=== PATIENT | female | born 1960 ===

== ENCOUNTER 2024-10-11 12:15 | Inpatient (IN) | payer OTHER ==
[~2024-10-11] VITALS: Ht 152.4 cm; Wt 75.7 kg
[2024-10-11] MEDS ORDERED: HUMALOG100 UNIT/2 (14:57)
[2024-10-11] MEDS ORDERED: LANTUS SOL100 UNIT/1 (14:57)
[2024-10-11] MEDS ORDERED: CARVEDILOL25 MG (14:58)
[2024-10-11] MEDS ORDERED: COZAAR50 MG PO (14:58)
[2024-10-11] MEDS ORDERED: LIPITOR40 MG PO (14:58)
[2024-10-18] MEDS ORDERED: BUPIVACAINE HCL 30 ML VIAL IJ ONE (08:30)
[2024-10-18] MEDS ORDERED: CEFTRIAXONE SODIUM 2,000 MG VIAL IV ONE (08:30)
[2024-10-18] MEDS ORDERED: LIDOCAINE HCL 1%/EPINEPHRINE 20ML VIAL IJ ONE (08:30)
[2024-10-18] MEDS ORDERED: INSULIN REGULAR, HUMAN 1,000 UNIT/10 ML UNITS IV ONE (08:30)
[2024-10-18] MEDS ORDERED: METRONIDAZOLE/SODIUM CHLORIDE 500 MG/100 ML PIGGYBACK IV ONE (08:30)
[2024-10-18] MEDS ORDERED: LOSARTAN POTASS25 MG (10:00)
[2024-10-18] MEDS ORDERED: LEVOTHYROXINE25 MC1 (10:00)
[2024-10-18] MEDS ORDERED: CALCITRIOL0.5 MCG (10:00)
[2024-10-18] MEDS ORDERED: CARVEDILOL25 M1 (10:00)
[2024-10-18] MEDS ORDERED: ROSUVASTATIN CA40 MG (10:00)
[2024-10-18] MEDS ORDERED: OxyCODONE HCL 5 MG TABLET (ROXICODONE) PO PRN (10:15)
[2024-10-18] MEDS ORDERED: MORPHINE SULFATE 4 MG/ML CARTRIDGE IV PRN (10:15)
[2024-10-18] MEDS ORDERED: RINGERS SOLUTION,LACTATED 1,000 ML IV SCH (10:15)
[2024-10-18] MEDS ORDERED: ONDANSETRON HCL 2 MG/ML VIAL IV PRN (10:15)
[2024-10-18] MEDS ORDERED: MORPHINE SULFATE 4 MG/ML VIAL IV ONE ×2 (10:55→12:25)
[2024-10-18] MEDS ORDERED: ONDANSETRON HCL 2 MG/ML VIAL IV ONE (11:00)
[2024-10-18 11:30] LABS: BASO % 0.2 % (0.1-1.2); EOS # 0.07 (0.04-0.54); EOS % 0.3 % (0.7-7.0); LYMPH # 0.85 (1.18-3.74); LYMPH % 3.9 % (19.3-53.1); MEAN PLATELET VOLUME 9.80 fl (9.4-12.4); MONO # 0.55 (0.24-0.82); MONO % 2.5 % (4.7-12.5); NEUT # 20.10 (1.56-6.13); NEUT % 92.6 % (34.0-71.1); RED CELL DISTRIBUTION WIDTH 13.2 % (11.6-14.4)
[2024-10-18] MEDS ORDERED: HYOSCYAMINE SULFATE 0.125 MG TAB.SUBL SL SCH (13:00)
[2024-10-18] MEDS ORDERED: SIMETHICONE 125 MG CAPSULE PO SCH (13:00)
[2024-10-18] MEDS ORDERED: INSULIN LISPRO 1,000 UNIT/10 ML UNITS SUBCUTANEO PRN ×2 (13:15→13:30)
[2024-10-18] MEDS ORDERED: DEXTROSE 50 % IN WATER 0.5 G/ML VIAL IV PRN (13:15)
[2024-10-18 13:30] VITALS: BP 145/79; O2SAT 95
[2024-10-18] MEDS ORDERED: hydrALAZINE HCL 20 MG VIAL IV PRN (13:30)
[2024-10-18] MEDS ORDERED: DEXTROSE 50 % IN WATER 0.5 G/ML DISP.SYRIN IV PRN (13:30)
[2024-10-18] MEDS ORDERED: ACETAMINOPHEN 500 MG GEL..CAP PO SCH (14:00)
[2024-10-18 16:01] VITALS: BP 117/59; O2SAT 96
[2024-10-18 16:02] VITALS: BP 148/65; O2SAT 97
[2024-10-18] MEDS ORDERED: POLYETHYLENE GLYCOL 3350 17 GM BLIST.PACK PO SCH (17:00)
[2024-10-18] MEDS ORDERED: GABAPENTIN 300 MG CAPSULE PO SCH (17:00)
[2024-10-18] MEDS ORDERED: CELECOXIB 200 MG CAPSULE PO SCH (17:00)
[2024-10-18] MEDS ORDERED: METOCLOPRAMIDE HCL 5 MG/ML VIAL IV SCH (17:00)
[2024-10-18] MEDS ORDERED: FAMOTIDINE/PF 20 MG/2 ML VIAL IV PUSH SCH (21:00)
[2024-10-19] VITALS: BP 130/75; O2SAT 90
[2024-10-19] MEDS ORDERED: LEVOTHYROXINE SODIUM 25 MCG TABLET PO SCH (06:00)
[2024-10-19 06:30] LABS: BASO % 0.1 % (0.1-1.2); EOS # 0.12 (0.04-0.54); EOS % 0.9 % (0.7-7.0); LYMPH # 1.57 (1.18-3.74); LYMPH % 11.7 % (19.3-53.1); MEAN PLATELET VOLUME 10.00 fl (9.4-12.4); MONO # 0.93 (0.24-0.82); MONO % 6.9 % (4.7-12.5); NEUT # 10.76 (1.56-6.13); NEUT % 80.0 % (34.0-71.1); RED CELL DISTRIBUTION WIDTH 13.1 % (11.6-14.4)
[2024-10-19 07:20] LABS: BUN CREA RATIO 13.0 (7.0-25.0); CREATININE SERUM 3.69 mg/dL (0.55-1.02); GFR 12.41; GLUCOSE FASTING 152.0 mg/dL (65-100); OSMOLALITY SERUM 308.0 MOSM/KG (275-295)
[2024-10-19 08:00] VITALS: BP 120/58; O2SAT 95
[2024-10-19] MEDS ORDERED: LACTULOSE 20 G/30 ML BLIST.PACK PO SCH (09:00)
[2024-10-19] MEDS ORDERED: LOSARTAN POTASSIUM 50 MG TABLET PO SCH (09:00)
[2024-10-19] MEDS ORDERED: CARVEDILOL 25 MG TABLET PO SCH (09:00)
[2024-10-19] MEDS ORDERED: INSULIN LISPRO 1,000 UNIT/10 ML UNITS SUBCUTANEO SCH (13:03)
[2024-10-19] MEDS ORDERED: ENOXAPARIN SODIUM 40 MG/0.4 ML SYRINGE SUBCUTANEO SCH (17:00)
[2024-10-19] MEDS ORDERED: ENOXAPARIN SODIUM 30 MG/0.3 ML SYRINGE SUBCUTANEO SCH (17:00)
[2024-10-19] MEDS ORDERED: ATORVASTATIN CALCIUM 40 MG TABLET PO SCH (17:00)
[2024-10-20 00:05] VITALS: BP 131/73; O2SAT 94
[2024-10-20 06:46] LABS: BASO % 0.1 % (0.1-1.2); EOS # 0.23 (0.04-0.54); EOS % 1.5 % (0.7-7.0); LYMPH # 1.14 (1.18-3.74); LYMPH % 7.4 % (19.3-53.1); MEAN PLATELET VOLUME 10.40 fl (9.4-12.4); MONO # 0.74 (0.24-0.82); MONO % 4.8 % (4.7-12.5); NEUT # 13.18 (1.56-6.13); NEUT % 85.7 % (34.0-71.1); RED CELL DISTRIBUTION WIDTH 13.4 % (11.6-14.4)
[2024-10-20 07:29] LABS: BUN CREA RATIO 12.0 (7.0-25.0); CREATININE SERUM 3.38 mg/dL (0.55-1.02); GFR 13.73
[2024-10-20 07:59] LABS: GLUCOSE FASTING 212.0 mg/dL (65-100); OSMOLALITY SERUM 307.0 MOSM/KG (275-295)
[2024-10-20] MEDS ORDERED: INSULIN LISPRO 1,000 UNIT/10 ML UNITS SUBCUTANEO SCH ×2 (08:00→12:00)
[2024-10-20 08:08] VITALS: BP 157/82; O2SAT 95
[2024-10-20] MEDS ORDERED: ENOXAPARIN SODIUM 40 MG/0.4 ML SYRINGE SUBCUTANEO SCH (09:00)
[2024-10-20] MEDS ORDERED: INSULIN GLARGINE,HUM.REC.ANLOG 1,000 UNITS/10 ML UNITS SUBCUTANEO SCH (09:00)
[2024-10-20] MEDS ORDERED: ENOXAPARIN SODIUM 30 MG/0.3 ML SYRINGE SUBCUTANEO SCH (09:00)
[2024-10-20] MEDS ORDERED: DEXTROSE 5 % IN WATER 1,000 ML IV SCH (09:45)
[2024-10-20] MEDS ORDERED: MAGNESIUM SULFATE IN WATER 50 ML IV NR (10:00)
[2024-10-20 15:30] VITALS: BP 108/67; O2SAT 96
== END 2024-10-20 18:00 | disposition home or self-care (01) | DRG 330 ==
LOC: O/R 10-18 09:53 → SURG 10-18 09:53 → SURH 10-18 12:15 → SURG 10-18 12:44 → SURH 10-18 14:30 → SURG 10-20 18:00
PROVIDERS: Internal Medicine Geriatric Medicine; ADMIT Colon & Rectal Surgery; ATTEND Colon & Rectal Surgery
PROC: 0DBP4ZZ Excision of Rectum, Percutaneous Endoscopic Approach (ICD-10-PCS; 2024-10-18)
PROC: 07BC4ZZ Excision of Pelvis Lymphatic, Percutaneous Endoscopic Approach (ICD-10-PCS; 2024-10-18)
PROC: 0DTN4ZZ Resection of Sigmoid Colon, Percutaneous Endoscopic Approach (ICD-10-PCS; principal; 2024-10-18 14:30)
DX: C19 Malignant neoplasm of rectosigmoid junction (principal); K92.1 Melena; N18.4 Chronic kidney disease, stage 4 (severe); E11.9 Type 2 diabetes mellitus without complications; Z79.4 Long term (current) use of insulin

== ENCOUNTER 2024-10-24 20:32 | Inpatient (IN) | payer OTHER ==
[~2024-10-24] VITALS: Ht 152.4 cm; Wt 75.7 kg
[~2024-10-24 20:32] MED LIST: CALCITRIOL0.5 MCG; CARVEDILOL25 M1; CARVEDILOL25 MG; COZAAR50 MG PO; HUMALOG100 UNIT/2; LANTUS SOL100 UNIT/1; LEVOTHYROXINE25 MC1; LIPITOR40 MG PO; LOSARTAN POTASS25 MG; ROSUVASTATIN CA40 MG
[2024-10-24] MEDS ORDERED: PANTOPRAZOLE SODIUM 40 MG in 0.9 % SODIUM CHLORIDE 8 ML IV PUSH STA (20:58)
[2024-10-24] MEDS ORDERED: ONDANSETRON HCL 2 MG/ML VIAL IV ONE (21:00)
[2024-10-24] MEDS ORDERED: MORPHINE SULFATE 4 MG/ML VIAL IV ONE (21:00)
[2024-10-24] MEDS ORDERED: 0.9 % SODIUM CHLORIDE 1,000 ML IV SCH ×2 (21:00→21:30)
[2024-10-24] MEDS ORDERED: TRAMADOL HCL 50 MG TABLET PO ONE (21:30)
[2024-10-24 22:12] LABS: BASO % 0.2 % (0.1-1.2); EOS # 0.43 (0.04-0.54); EOS % 2.4 % (0.7-7.0); LYMPH # 1.28 (1.18-3.74); LYMPH % 7.2 % (19.3-53.1); MEAN PLATELET VOLUME 9.60 fl (9.4-12.4); MONO # 0.93 (0.24-0.82); MONO % 5.2 % (4.7-12.5); NEUT # 15.07 (1.56-6.13); NEUT % 84.6 % (34.0-71.1); RED CELL DISTRIBUTION WIDTH 13.2 % (11.6-14.4)
[2024-10-24 22:29] LABS: URINE APPEARANCE Cloudy; URINE BILIRRUBIN Negative (NEGATIVE); URINE BLOOD Negative; URINE COLOR Yellow; URINE KETONE Negative (NEGATIVE); URINE LEUKOCYTE Negative; URINE NITRATE Negative; URINE UROBILINOGEN 0.2 E.U./dl
[2024-10-24 22:32] LABS: ALT/SGPT 33.0 U/L (12-78); AST/SGOT 20.0 U/L (15-37); BILIRUBIN TOTAL 0.29 mg/dL (0.3-1.2); BUN CREA RATIO 13.0 (7.0-25.0); CREATININE SERUM 2.84 mg/dL (0.55-1.02); GFR 16.79; GLOBULINA 4.8 G/DL (2.4-3.5); GLUCOSE FASTING 194.0 mg/dL (65-100); OSMOLALITY SERUM 295.0 MOSM/KG (275-295)
[2024-10-24 22:33] LABS: URINE BACTERIA 512.3 uL (0.0-1933); URINE EPITHELIAL CELLS 26.4 uL (0.0-38.8); URINE WBC 6.3 uL (0.0-23.2)
[2024-10-24 22:46] LABS: URINE CAST 1.31 uL (0.0-1.40); URINE GLUCOSE 100 MG/DL (NEGATIVE); URINE PROTEIN 300 (NEGATIVE); URINE RBC 1.1 uL (0.0-20.8)
[2024-10-24] MEDS ORDERED: PIPERACILLIN/TAZOBACTAM SODIUM 2.25 GM VIAL IV SCH (22:54)
[2024-10-24] MEDS ORDERED: BARIUM SULFATE 450 ML ORAL.SUSP PO ONE (23:00)
[2024-10-24] MEDS ORDERED: TRAMADOL HCL 50 MG TABLET PO PRN (23:15)
[2024-10-25 15:00] VITALS: BP 150/70; O2SAT 98
[2024-10-25] MEDS ORDERED: GABAPENTIN 300 MG CAPSULE PO SCH (15:27)
[2024-10-25] MEDS ORDERED: ACETAMINOPHEN 500 MG GEL..CAP PO PRN (15:30)
[2024-10-25] MEDS ORDERED: DEXTROSE 50 % IN WATER 0.5 G/ML DISP.SYRIN IV PRN (15:30)
[2024-10-25] MEDS ORDERED: INSULIN LISPRO 1,000 UNIT/10 ML UNITS SUBCUTANEO PRN (15:30)
[2024-10-25] MEDS ORDERED: 0.9 % SODIUM CHLORIDE 1,000 ML IV SCH (15:30)
[2024-10-25] MEDS ORDERED: hydrALAZINE HCL 20 MG VIAL IV PRN (15:30)
[2024-10-25] MEDS ORDERED: FAMOTIDINE/PF 20 MG/2 ML VIAL IV SCH (21:00)
[2024-10-25] MEDS ORDERED: FAMOTIDINE/PF 20 MG/2 ML VIAL ONE (21:12)
[2024-10-25 23:49] VITALS: BP 135/77; O2SAT 99
[2024-10-26] MEDS ORDERED: LEVOTHYROXINE SODIUM 25 MCG TABLET PO SCH (06:00)
[2024-10-26 07:02] LABS: BASO % 0.2 % (0.1-1.2); EOS # 0.46 (0.04-0.54); EOS % 3.0 % (0.7-7.0); LYMPH # 1.40 (1.18-3.74); LYMPH % 9.2 % (19.3-53.1); MEAN PLATELET VOLUME 9.70 fl (9.4-12.4); MONO # 0.91 (0.24-0.82); MONO % 6.0 % (4.7-12.5); NEUT # 12.39 (1.56-6.13); NEUT % 81.1 % (34.0-71.1); RED CELL DISTRIBUTION WIDTH 13.3 % (11.6-14.4)
[2024-10-26 07:21] LABS: ALT/SGPT 22.0 U/L (12-78); AST/SGOT 15.0 U/L (15-37); BILIRUBIN TOTAL 0.31 mg/dL (0.3-1.2); BUN CREA RATIO 12.0 (7.0-25.0); CREATININE SERUM 2.7 mg/dL (0.55-1.02); ERYTHROCYTE SEDIMENTATION RATE 86 mm/hr (0-30); GFR 17.8; GLOBULINA 3.7 G/DL (2.4-3.5); GLUCOSE FASTING 110.0 mg/dL (65-100); OSMOLALITY SERUM 294.0 MOSM/KG (275-295)
[2024-10-26 07:29] LABS: TSH 1.59 uIU/mL (0.358-3.74)
[2024-10-26 08:22] VITALS: BP 128/71; O2SAT 98
[2024-10-26] MEDS ORDERED: LOSARTAN POTASSIUM 50 MG TABLET PO SCH (09:00)
[2024-10-26] MEDS ORDERED: CARVEDILOL 25 MG TABLET PO SCH (09:00)
[2024-10-26] MEDS ORDERED: MORPHINE SULFATE 4 MG/ML CARTRIDGE IV PRN (13:15)
[2024-10-26] MEDS ORDERED: LACTOBACILLUS ACIDOPHILUS 1 CAP CAP PO SCH (17:00)
[2024-10-26] MEDS ORDERED: AA 4.25%/CAL/LYTES/DEXT 5% 1,000 ML PERIFERAL SCH (17:00)
[2024-10-26] MEDS ORDERED: ENOXAPARIN SODIUM 30 MG/0.3 ML SYRINGE SUBCUTANEO SCH (17:00)
[2024-10-26 17:42] VITALS: BP 145/63; O2SAT 100
[2024-10-26 17:42] LABS: INR 1.1
[2024-10-26 17:50] LABS: BUN CREA RATIO 12.0 (7.0-25.0); CHOL HDL RATIO 2.6 (0-5.0); CREATININE SERUM 2.69 mg/dL (0.55-1.02); GFR 17.87; GLUCOSE FASTING 112.0 mg/dL (65-100); HDL 43.0 mg/dl (40-60); LDL 45.0 mg/dl (0-130); OSMOLALITY SERUM 298.0 MOSM/KG (275-295); VLDL 24.0 (0-39)
[2024-10-27 01:08] VITALS: BP 151/69; O2SAT 100
[2024-10-27 08:29] VITALS: BP 173/83; O2SAT 97
[2024-10-27] MEDS ORDERED: TRAMADOL HCL 50 MG TABLET PO STA (12:07)
[2024-10-27] MEDS ORDERED: TRAMADOL HCL 50 MG TABLET PO PRN (12:15)
[2024-10-27 16:05] VITALS: BP 142/84; O2SAT 98
[2024-10-27] MEDS ORDERED: AA 3.31 %/D9.8W/FAT/E-LYTES 10 2,053 ML IV SCH (17:00)
[2024-10-27] MEDS ORDERED: MEROPENEM 500 MG/VIAL VIAL IV SCH (17:00)
[2024-10-28 01:58] VITALS: BP 144/56; O2SAT 97
[2024-10-28 06:41] LABS: BASO % 0.4 % (0.1-1.2); EOS # 0.41 (0.04-0.54); EOS % 4.9 % (0.7-7.0); LYMPH # 1.15 (1.18-3.74); LYMPH % 13.9 % (19.3-53.1); MEAN PLATELET VOLUME 9.30 fl (9.4-12.4); MONO # 0.69 (0.24-0.82); MONO % 8.3 % (4.7-12.5); NEUT # 5.87 (1.56-6.13); NEUT % 70.8 % (34.0-71.1); RED CELL DISTRIBUTION WIDTH 13.2 % (11.6-14.4)
[2024-10-28 07:15] LABS: ALT/SGPT 18.0 U/L (12-78); AST/SGOT 9.0 U/L (15-37); BILIRUBIN TOTAL 0.23 mg/dL (0.3-1.2); BUN CREA RATIO 12.0 (7.0-25.0); CREATININE SERUM 2.75 mg/dL (0.55-1.02); GFR 17.42; GLOBULINA 3.9 G/DL (2.4-3.5); OSMOLALITY SERUM 311.0 MOSM/KG (275-295)
[2024-10-28 07:17] LABS: GLUCOSE FASTING 371.0 mg/dL (65-100)
[2024-10-28 08:00] VITALS: BP 150/80; O2SAT 96
[2024-10-28] MEDS ORDERED: INSULIN NPH HUMAN ISOPHANE 1,000 UNITS/10 ML UNITS SUBCUTANEO SCH ×2 (09:57→18:00)
[2024-10-28] MEDS ORDERED: DEXTROSE 50 % IN WATER 0.5 G/ML VIAL IV PRN (11:30)
[2024-10-28] MEDS ORDERED: INSULIN LISPRO 1,000 UNIT/10 ML UNITS SUBCUTANEO PRN ×2 (11:30→11:45)
[2024-10-28] MEDS ORDERED: INSULIN NPH HUMAN ISOPHANE 1,000 UNITS/10 ML UNITS SUBCUTANEO STA (11:53)
[2024-10-28 16:37] VITALS: BP 147/75; O2SAT 96
[2024-10-28] MEDS ORDERED: fentaNYL CITRATE 50 MCG/ML AMPUL IV PUSH ONE (16:45)
[2024-10-28] MEDS ORDERED: MIDAZOLAM HCL 2 MG/2 ML VIAL IV PUSH ONE (16:45)
[2024-10-29 00:20] VITALS: BP 148/76; O2SAT 97
[2024-10-29 08:00] VITALS: BP 163/84; O2SAT 99
[2024-10-29 08:42] LABS: ALT/SGPT 17.0 U/L (12-78); AST/SGOT 13.0 U/L (15-37); BILIRUBIN TOTAL 0.15 mg/dL (0.3-1.2); BUN CREA RATIO 12.0 (7.0-25.0); CREATININE SERUM 2.48 mg/dL (0.55-1.02); GFR 19.63; GLOBULINA 3.8 G/DL (2.4-3.5)
[2024-10-29 08:43] LABS: GLUCOSE FASTING 254.0 mg/dL (65-100); OSMOLALITY SERUM 309.0 MOSM/KG (275-295)
[2024-10-29] MEDS ORDERED: ENOXAPARIN SODIUM 30 MG/0.3 ML SYRINGE SUBCUTANEO SCH (09:00)
[2024-10-29] MEDS ORDERED: FLUCONAZOLE IN NACL,ISO-OSM 50 ML IV SCH (11:10)
[2024-10-29] MEDS ORDERED: FLUCONAZOLE IN NACL,ISO-OSM 2 MG/ML ML IV SCH (12:00)
[2024-10-29] MEDS ORDERED: INSULIN NPH HUMAN ISOPHANE 1,000 UNITS/10 ML UNITS SUBCUTANEO SCH (13:00)
[2024-10-29 16:00] VITALS: BP 153/85; O2SAT 96
[2024-10-30 01:10] VITALS: BP 137/76; O2SAT 96
[2024-10-30] MEDS ORDERED: SODIUM CHLORIDE 0.45 % 1,000 ML IV SCH (06:00)
[2024-10-30 08:00] VITALS: BP 165/71; O2SAT 96
[2024-10-30] MEDS ORDERED: THIAMINE HCL 100 MG/ML 2 ML VIAL IV SCH (09:00)
[2024-10-30] MEDS ORDERED: Cyanocobalamin/Mecobalamin 1 TAB.SL SL SCH (09:00)
[2024-10-30] MEDS ORDERED: AMINO ACIDS/PROTEIN HYDROLYS 30 ML BLIST.PACK PO SCH (09:00)
[2024-10-30] MEDS ORDERED: SOD FERRIC GLUC COMPLX/SUCROSE 62.5 MG in 0.9 % SODIUM CHLORIDE 50 ML IV SCH (09:00)
[2024-10-30] MEDS ORDERED: INSULIN NPH HUMAN ISOPHANE 1,000 UNITS/10 ML UNITS SUBCUTANEO STA (09:04)
[2024-10-30 10:11] LABS: BASO % 0.4 % (0.1-1.2); EOS # 0.56 (0.04-0.54); EOS % 4.7 % (0.7-7.0); LYMPH # 1.38 (1.18-3.74); LYMPH % 11.6 % (19.3-53.1); MEAN PLATELET VOLUME 9.40 fl (9.4-12.4); MONO # 0.64 (0.24-0.82); MONO % 5.4 % (4.7-12.5); NEUT # 9.03 (1.56-6.13); NEUT % 75.6 % (34.0-71.1); RED CELL DISTRIBUTION WIDTH 13.2 % (11.6-14.4)
[2024-10-30 10:35] LABS: BUN CREA RATIO 13.0 (7.0-25.0); CREATININE SERUM 2.42 mg/dL (0.55-1.02); GFR 20.2; OSMOLALITY SERUM 304.0 MOSM/KG (275-295)
[2024-10-30 10:36] LABS: GLUCOSE FASTING 291.0 mg/dL (65-100)
[2024-10-30] MEDS ORDERED: POTASSIUM PHOS,M-BASIC-D-BASIC 3 MM/ML VIAL IV NR (14:00)
[2024-10-30 16:00] VITALS: BP 136/84; O2SAT 96
[2024-10-30] MEDS ORDERED: INSULIN NPH HUMAN ISOPHANE 1,000 UNITS/10 ML UNITS SUBCUTANEO SCH (17:00)
[2024-10-30 23:56] VITALS: BP 160/77; O2SAT 100
[2024-10-31 06:55] LABS: BASO % 0.5 % (0.1-1.2); EOS # 0.65 (0.04-0.54); EOS % 5.9 % (0.7-7.0); LYMPH # 1.71 (1.18-3.74); LYMPH % 15.5 % (19.3-53.1); MEAN PLATELET VOLUME 9.50 fl (9.4-12.4); MONO # 0.71 (0.24-0.82); MONO % 6.4 % (4.7-12.5); NEUT # 7.65 (1.56-6.13); NEUT % 69.1 % (34.0-71.1); RED CELL DISTRIBUTION WIDTH 13.2 % (11.6-14.4)
[2024-10-31 07:15] LABS: INR 1.03
[2024-10-31 08:00] VITALS: BP 169/75; O2SAT 98
[2024-10-31 08:07] LABS: ALT/SGPT 18 U/L (12-78); AST/SGOT 13 U/L (15-37); BILIRUBIN TOTAL 0.23 mg/dL (0.3-1.2); BILIRUBIN,CONJUGATED < 0.10 mg/dL (0.0-0.2); BUN CREA RATIO 18 (7.0-25.0); CHOL HDL RATIO 3.8 (0-5.0); CREATININE SERUM 2.37 mg/dL (0.55-1.02); GFR 20.69; GLOBULINA 3.8 G/DL (2.4-3.5); HDL 39 mg/dl (40-60); LDL 61 mg/dl (0-130); VLDL 49 (0-39)
[2024-10-31 08:10] LABS: GLUCOSE FASTING 214 mg/dL (65-100); OSMOLALITY SERUM 302 MOSM/KG (275-295)
[2024-10-31 16:00] VITALS: BP 114/72; O2SAT 98
[2024-11-01 00:50] VITALS: BP 162/71; O2SAT 98
[2024-11-01 08:00] VITALS: BP 159/86; O2SAT 97
[2024-11-01] MEDS ORDERED: MULTIVIT INFUSN,ADULT 4,VIT K 10 ML VIAL IV SCH (09:00)
[2024-11-01] MEDS ORDERED: THIAMINE HCL 100 MG/ML 2 ML VIAL IV SCH (09:00)
[2024-11-01 16:00] VITALS: BP 135/82; O2SAT 99
[2024-11-01] MEDS ORDERED: DIATRIZOATE MEGLUMINE, SODIUM 30 ML BOTTLE PO ONE (20:30)
[2024-11-02] MEDS ORDERED: DIATRIZOATE MEGLUMINE, SODIUM 30 ML BOTTLE PO ONE (06:00)
[2024-11-02 06:26] LABS: BASO % 0.5 % (0.1-1.2); EOS # 0.76 (0.04-0.54); EOS % 4.8 % (0.7-7.0); LYMPH # 1.72 (1.18-3.74); LYMPH % 10.8 % (19.3-53.1); MEAN PLATELET VOLUME 10.50 fl (9.4-12.4); MONO # 0.95 (0.24-0.82); MONO % 6.0 % (4.7-12.5); NEUT # 12.10 (1.56-6.13); NEUT % 76.1 % (34.0-71.1); RED CELL DISTRIBUTION WIDTH 13.3 % (11.6-14.4)
[2024-11-02 06:36] LABS: BUN CREA RATIO 22.0 (7.0-25.0); CREATININE SERUM 2.66 mg/dL (0.55-1.02); GFR 18.11
[2024-11-02 06:39] LABS: GLUCOSE FASTING 224.0 mg/dL (65-100); OSMOLALITY SERUM 299.0 MOSM/KG (275-295)
[2024-11-02 07:01] LABS: ERYTHROCYTE SEDIMENTATION RATE 128 mm/hr (0-30)
[2024-11-02 10:55] VITALS: BP 138/88; O2SAT 96
[2024-11-02 16:52] VITALS: BP 126/68; O2SAT 100
[2024-11-02] MEDS ORDERED: CIPROFLOXACIN IN 5 % DEXTROSE 400 MG/200 ML PIGGYBAG IV SCH (21:00)
[2024-11-03] MEDS ORDERED: INSULIN NPH HUMAN ISOPHANE 1,000 UNITS/10 ML UNITS SUBCUTANEO SCH (01:00)
[2024-11-03 02:10] VITALS: BP 148/69; O2SAT 97
[2024-11-03 07:20] VITALS: BP 133/73; O2SAT 99
[2024-11-03 07:37] LABS: BUN CREA RATIO 23.0 (7.0-25.0); CREATININE SERUM 2.73 mg/dL (0.55-1.02); GFR 17.57
[2024-11-03 07:39] LABS: GLUCOSE FASTING 226.0 mg/dL (65-100); OSMOLALITY SERUM 297.0 MOSM/KG (275-295)
[2024-11-03 08:34] LABS: BASO % 0.3 % (0.1-1.2); EOS # 0.73 (0.04-0.54); EOS % 5.1 % (0.7-7.0); LYMPH # 1.58 (1.18-3.74); LYMPH % 11.0 % (19.3-53.1); MEAN PLATELET VOLUME 10.00 fl (9.4-12.4); MONO # 0.98 (0.24-0.82); MONO % 6.8 % (4.7-12.5); NEUT # 10.75 (1.56-6.13); NEUT % 75.2 % (34.0-71.1); RED CELL DISTRIBUTION WIDTH 13.2 % (11.6-14.4)
[2024-11-03] MEDS ORDERED: 0.9 % SODIUM CHLORIDE 1,000 ML IV SCH (12:15)
[2024-11-03 17:00] VITALS: BP 122/77; O2SAT 99
[2024-11-04 01:29] VITALS: BP 139/83; O2SAT 97
[2024-11-04 07:00] LABS: BASO % 0.4 % (0.1-1.2); EOS # 0.61 (0.04-0.54); EOS % 4.4 % (0.7-7.0); LYMPH # 1.60 (1.18-3.74); LYMPH % 11.4 % (19.3-53.1); MEAN PLATELET VOLUME 10.00 fl (9.4-12.4); MONO # 1.07 (0.24-0.82); MONO % 7.6 % (4.7-12.5); NEUT # 10.48 (1.56-6.13); NEUT % 74.9 % (34.0-71.1); RED CELL DISTRIBUTION WIDTH 13.8 % (11.6-14.4)
[2024-11-04 07:42] LABS: BUN CREA RATIO 22.0 (7.0-25.0); CREATININE SERUM 2.94 mg/dL (0.55-1.02); GFR 16.13; GLUCOSE FASTING 97.0 mg/dL (65-100); OSMOLALITY SERUM 301.0 MOSM/KG (275-295)
[2024-11-04 08:07] VITALS: BP 102/67; BP 126/77; O2SAT 96; O2SAT 98
[2024-11-04] MEDS ORDERED: CITRIC ACID/SODIUM CITRATE 30 ML BLIST.PACK PO SCH (09:00)
[2024-11-04] MEDS ORDERED: SODIUM BICARBONATE 50MEQ/50ML VIAL IV NR (10:15)
[2024-11-04 16:00] VITALS: BP 134/59; O2SAT 99
[2024-11-05 01:10] VITALS: BP 136/79; O2SAT 98
[2024-11-05 08:00] LABS: BASO % 0.5 % (0.1-1.2); EOS # 0.47 (0.04-0.54); EOS % 5.5 % (0.7-7.0); LYMPH # 1.48 (1.18-3.74); LYMPH % 17.2 % (19.3-53.1); MEAN PLATELET VOLUME 10.20 fl (9.4-12.4); MONO # 0.87 (0.24-0.82); MONO % 10.1 % (4.7-12.5); NEUT # 5.64 (1.56-6.13); NEUT % 65.7 % (34.0-71.1); RED CELL DISTRIBUTION WIDTH 13.9 % (11.6-14.4)
[2024-11-05] MEDS ORDERED: INSULIN LISPRO 1,000 UNIT/10 ML UNITS SUBCUTANEO SCH (08:00)
[2024-11-05 08:07] VITALS: BP 128/77; O2SAT 98
[2024-11-05 08:07] LABS: ALT/SGPT 14.0 U/L (12-78); AST/SGOT 11.0 U/L (15-37); BILIRUBIN TOTAL 0.25 mg/dL (0.3-1.2); BUN CREA RATIO 20.0 (7.0-25.0); CREATININE SERUM 2.99 mg/dL (0.55-1.02); GFR 15.82; GLOBULINA 3.5 G/DL (2.4-3.5); GLUCOSE FASTING 161.0 mg/dL (65-100); OSMOLALITY SERUM 309.0 MOSM/KG (275-295)
[2024-11-05] MEDS ORDERED: INSULIN GLARGINE,HUM.REC.ANLOG 1,000 UNITS/10 ML UNITS SUBCUTANEO SCH (09:00)
[2024-11-05] MEDS ORDERED: CIPROFLOXACIN IN 5 % DEXTROSE 400 MG/200 ML PIGGYBAG IV SCH (09:00)
[2024-11-05 16:00] VITALS: BP 126/64; O2SAT 98
[2024-11-06] VITALS: BP 156/74; O2SAT 98
[2024-11-06 08:00] VITALS: BP 155/82; O2SAT 98
[2024-11-06] MEDS ORDERED: INSULIN LISPRO 1,000 UNIT/10 ML UNITS SUBCUTANEO SCH (08:00)
[2024-11-06] MEDS ORDERED: INSULIN GLARGINE,HUM.REC.ANLOG 1,000 UNITS/10 ML UNITS SUBCUTANEO SCH (09:00)
[2024-11-06 16:00] VITALS: BP 139/78; O2SAT 97
[2024-11-06] MEDS ORDERED: SODIUM BICARBONATE 1 MEQ/ML DISP.SYRIN 50ML IV ONE (18:00)
[2024-11-07 01:39] VITALS: BP 148/75; BP 92/54; O2SAT 95; O2SAT 97
[2024-11-07 06:41] LABS: BASO % 0.7 % (0.1-1.2); EOS # 0.35 (0.04-0.54); EOS % 5.0 % (0.7-7.0); LYMPH # 1.46 (1.18-3.74); LYMPH % 21.0 % (19.3-53.1); MEAN PLATELET VOLUME 9.90 fl (9.4-12.4); MONO # 0.70 (0.24-0.82); MONO % 10.1 % (4.7-12.5); NEUT # 4.35 (1.56-6.13); NEUT % 62.6 % (34.0-71.1); RED CELL DISTRIBUTION WIDTH 14.2 % (11.6-14.4)
[2024-11-07 08:37] LABS: BUN CREA RATIO 17.0 (7.0-25.0); CREATININE SERUM 2.9 mg/dL (0.55-1.02); GFR 16.39; GLUCOSE FASTING 185.0 mg/dL (65-100); OSMOLALITY SERUM 323.0 MOSM/KG (275-295)
[2024-11-07 08:38] LABS: ALT/SGPT 13.0 U/L (12-78); AST/SGOT 10.0 U/L (15-37); BILIRUBIN TOTAL 0.32 mg/dL (0.3-1.2); GLOBULINA 3.6 G/DL (2.4-3.5)
[2024-11-07 09:00] VITALS: BP 153/68; O2SAT 98
[2024-11-07] MEDS ORDERED: SODIUM CHLORIDE 0.45 % 1,000 ML IV SCH (09:45)
[2024-11-07 16:00] VITALS: BP 133/80; O2SAT 98
[2024-11-08 02:24] VITALS: BP 137/72; O2SAT 98
[2024-11-08 08:14] VITALS: BP 153/82; O2SAT 99
[2024-11-08 08:34] LABS: GLUCOSE FASTING 135.0 mg/dL (65-100)
[2024-11-08 08:35] LABS: BUN CREA RATIO 14.0 (7.0-25.0); CREATININE SERUM 2.63 mg/dL (0.55-1.02); GFR 18.35; OSMOLALITY SERUM 303.0 MOSM/KG (275-295)
== END 2024-11-08 13:22 | disposition home or self-care (01) | DRG 393 ==
LOC: ER 20:32 → SEC-K 10-25 15:36 → SURG 10-25 15:36
PROVIDERS: General Practice; Internal Medicine; Internal Medicine Geriatric Medicine; Internal Medicine Nephrology; Radiology Vascular & Interventional Radiology; Surgery; ADMIT Colon & Rectal Surgery; ATTEND Colon & Rectal Surgery
PROC: BW21YZZ Computerized Tomography (CT Scan) of Abdomen and Pelvis using Other Contrast (ICD-10-PCS; 2024-10-24)
PROC: 02HV33Z Insertion of Infusion Device into Superior Vena Cava, Percutaneous Approach (ICD-10-PCS; 2024-10-26)
PROC: 0H97XZZ Drainage of Abdomen Skin, External Approach (ICD-10-PCS; principal; 2024-10-27)
PROC: BW21YZZ Computerized Tomography (CT Scan) of Abdomen and Pelvis using Other Contrast (ICD-10-PCS; 2024-11-02)
DX: K91.89 Other postprocedural complications and disorders of digestive system (principal); A41.9 Sepsis, unspecified organism; E87.20 Acidosis, unspecified; E11.22 Type 2 diabetes mellitus with diabetic chronic kidney disease; I12.9 Hypertensive chronic kidney disease with stage 1 through stage 4 chronic kidney disease, or unspecified chronic kidney disease; N18.9 Chronic kidney disease, unspecified; Z79.4 Long term (current) use of insulin; E03.9 Hypothyroidism, unspecified; B96.20 Unspecified Escherichia coli [E. coli] as the cause of diseases classified elsewhere; D72.829 Elevated white blood cell count, unspecified; D64.9 Anemia, unspecified